=== PATIENT | female | born 1970 | race Caucasian/White ===

== ENCOUNTER 2017-10-27 03:20 | Emergency (ER) | payer OTHER ==
[~2017-10-27] VITALS: Ht 170.2 cm; Wt 63.5 kg
--- NOTE | 2017-10-27 03:38 | ER Report ---
History and Physical Time Seen By MD: 03:28 Hx. of Stated Complaint: PT HAS INFECTED TOOTH ON BOTTOM LEFT SIDE. IS CAUSING PAIN AND DRAINING PUS. HAS APPT WITH DENTIST ON SUNDAY. HPI/ROS CHIEF COMPLAINT: Dental infection HISTORY OF PRESENT ILLNESS: The patient has been having lower tooth pain for the last few days. Swelling. Tonight the tooth was very painful and awoke her from sleep. It has just started to drain. Lower left jaw. Is going to be calling her dentist on Sunday, no appointment yet. Allergies: Coded Allergies: Penicillins (Verified Allergy, Mild, RASH, 10/27/17) Home Meds Active Scripts Hydrocodone Bit/Acetaminophen (HYDROCODON-ACETAMINOPHEN 5-325) 1 Each Tablet, 1 EACH PO Q4H Y for PAIN, #8 TAB 0 Refills Prov:GABRIELLA ESCALONA MD 10/27/17 Clindamycin Hcl (CLINDAMYCIN HCL) 300 Mg Capsule, 300 MG PO TID, #30 CAPSULE 0 Refills Prov:GABRIELLA ESCALONA MD 10/27/17 Reviewed Nurses Notes: Yes Hx Substance Use Disorder: No Hx Alcohol Use: No Constitutional Vital Sign - Last 24 Hours 10/27/17 03:24 Temp 98.2 Pulse 113 Resp 14 B/P (MAP) 188/111 Pulse Ox 97 O2 Delivery Room Air Physical Exam General: Alert, mild distress. Very apologetic for having to be here tonight. ENT: redness of the gums and break down in the tooth lower jaw. Draining. Skin: some redness and swelling in the left jaw. Medical Decision Making ED Course/Re-evaluation ED Course Clindamycin 300mg three times a day. Ibuprofen for pain. Offered Lortab for pain as well. Decision to Disposition Date: Oct 27, 2017 Decision to Disposition Time: 03:43 Depart Departure Latest Vital Signs Vital Signs Date Time Temp Pulse Resp B/P (MAP) Pulse Ox O2 Delivery O2 Flow Rate FiO2 10/27/17 03:24 98.2 113 14 188/111 97 Room Air Impression: Primary Impression: Dental abscess Condition: Improved Disposition: HOME OR SELF-CARE New Scripts Hydrocodone Bit/Acetaminophen (HYDROCODON-ACETAMINOPHEN 5-325) 1 Each Tablet 1 EACH PO Q4H Y for PAIN, #8 TAB 0 Refills Prov: GABRIELLA ESCALONA MD 10/27/17 Clindamycin Hcl (CLINDAMYCIN HCL) 300 Mg Capsule 300 MG PO TID, #30 CAPSULE 0 Refills Prov: GABRIELLA ESCALONA MD 10/27/17 Patient Instructions: Dental Abscess (ED) Additional Instructions: Call and arrange an appointment with your dentis this coming week. Take the antibiotic Clindamycin 300mg three times a day for 10 days. You can take Ibuprofen 200mg over the counter tablets, take 4 tablets every 8 hours for pain. For more severe pain, you can use Lortab 5/325, one every 4 hours. GABRIELLA ESCALONA MD Oct 27, 2017 03:38
[2017-10-27] MEDS ORDERED: CLIN300C99 PO (03:44)
[2017-10-27] MEDS ORDERED: LOR5/325 PO (03:44)
[2017-10-27] MEDS ORDERED: CLINDAMYCIN 150 MG CAP PO ONE (03:50)
[2017-10-27 04:35] VITALS: BP 124/84
== END 2017-10-27 03:55 | disposition home or self-care (01) ==
LOC: ER 03:54
DX: K04.7 Periapical abscess without sinus (principal)
CPT/HCPCS: 99281